=== PATIENT | female | born 1985 | race Two or more races ===

== ENCOUNTER 2024-01-29 14:34 | Outpatient (RCR) | payer MEDICAID, SELFPAY | END 2024-02-21 23:59 | disposition home or self-care (01) | LOC: SCTC 14:34 | PROVIDERS: PCP Family Medicine; Referring Provider Family Medicine; Visit Provider Nurse Practitioner Family | DX: D69.6 Thrombocytopenia, unspecified (principal); R16.1 Splenomegaly, not elsewhere classified; D70.9 Neutropenia, unspecified; Z87.891 Personal history of nicotine dependence; N92.0 Excessive and frequent menstruation with regular cycle; N83.202 Unspecified ovarian cyst, left side | CPT/HCPCS: 99212; G0463 ==

== ENCOUNTER 2024-06-10 13:27 | Outpatient (RCR) | payer MEDICAID, SELFPAY ==
--- NOTE | 2024-06-02 01:04 | CTCFLWUP_ITS ---
Patient: DAVID VICTORIA : 1985 Page 2 of 2 HEMATOLOGY FOLLOW UP NOTE DATE OF SERVICE: 06/01/2024 NAME: DAVID VICTORIA ACCOUNT: [id number] : 1985 AGE: 38 INTERVAL HISTORY: Patient is complaining of small bruise on her thigh. DIAGNOSIS: Thrombocytopenia likely secondary to hepatosplenomegaly possibly due to history of fatty liver, 08/07/2023. Significant splenomegaly, 10/01/2023 TREATMENT HISTORY: Care?Plan Start?Date Cycle Day Intent HISTORY OF PRESENT ILLNESS: Patient is 38-year-old woman with hepatosplenomegaly and thrombocytopenia. Patient was briefly started on Promacta and which she was unable to tolerate. Patient says that she had severe headache nausea and vision changes and do not want to continue Promacta. Patient was on 25 mg. Patient was sent here after she was found to have low platelets for planned ovarian cyst removal. Patient has now established her care in the clinic in [place]. Patient do not use alcohol. Patient have not seen family practice medical doctor. OTHER MEDICAL HISTORY/CONDITIONS: Thrombocytopenia Left ovarian cyst Covid 2020 Appendectomy - 2016 Tubal ligation - 3 yrs ago FAMILY HISTORY: Sibling:?Sister?-?breast?-?dx?age?39 Cancer History:?Maternal aunt - breast - dx age 60 SOCIAL HISTORY: Occupational History - Unemployed Education Level - Completed High School Marital Status - Tobacco Use Note - Smoking 3 cigarettes/day x 2-3 yrs off/on ETOH Use Note - Denies Drug Note - Denies Abuse/Neglect Note - Denies Social History Note 2 - Lives [facility] children [employer] HISTORY: Menarche?-?Age:?11 Date?LMP:?07/08/2023 :?3 Live?Births:?3 Age?1st?:?17 Gynecological?Note:?Menses regular -6 days/mo; 4 days heavy bleeding with clots MEDICATIONS: 1. prednisone - 10 mg 1 tab Daily 2. Protonix - 40 mg 1 tab Daily Medications Last Reconciled by Sully Andrade MD on 06/01/2024 5 5 ALLERGIES: No Known Drug Allergies REVIEW OF SYSTEMS: A complete 14-point review of systems was performed and is negative except as noted in interval history. PHYSICAL EXAMINATION: VITAL SIGNS: Temperature?95.4, B/P?120/80, Oxygen?Saturation?97% Weight?166?lbs PAIN: 1 - Between no and mild pain ECOG Performance Status: 0 - Asymptomatic and fully active GENERAL APPEARANCE: Appears well, in no apparent distress, appropriately interactive. HEENT: Normocephalic, no temporal wasting, normal conjunctiva, no scleral icterus, normal hearing, lips without lesions, neck normal range of motion. CARDIOVASCULAR: Not assessed. PULMONARY: Normal respiratory effort, no respiratory distress or use of accessory muscles, speaking in full sentences, no tachypnea. EXTREMITIES: No pedal edema or cyanosis. SKIN: Normal skin appearance. Bruise noted over the right thigh small area. No other punctate lesions noted anywhere on the shins or arms NEUROLOGIC: Alert and oriented x4. PSHYCHIATRIC: Appropriate affect, mood normal, behavior normal, intact thought and speech. 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 pylori testing to see if patient have any viral infections which can cause chronic thrombocytopenia Will do MRI of the liver and spleen to confirm hepatosplenomegaly Will do flow cytometry for myeloproliferative neoplasms I will start Ms. Victoria on steroid prednisone taper and see if patient responds to prednisone I reviewed patient's old labs and patient never had hyperbilirubinemia. Will check for LDH haptoglobin antiplatelet antibodies As patient also had leukopenia at most labs I am concerned for MPN and will order bone marrow biopsy Once we have results of all investigations, we will make further recommendations Patient can be given platelet pheresis if needed for procedure ORDERS: Order # Description [id number] MRI + Abdomen + With W/O Contrast [id number] CBC with Auto Diff [id number] Hep A, B and C panel [id number] CT Guided Bone Marrow Biopsy and Aspiration [id number] Myeloproliferative Neoplasms Extended Reflex Panel RETURN TO CLINIC: 1 week BILLING AND COMPLIANCE: I reviewed external records from providers outside my specialty as summarized above. I spent a total of 50 minutes on this patient?s care on the day of their visit excluding time spent related to any billed procedures. This time includes time spent with the patient as well as time spent documenting in the medical record, reviewing patients records and tests, obtaining history, placing orders, communicating with other healthcare professionals, counseling the patient, family or caregiver, and/or care coordination for the diagnoses above. Electronically Signed by: Gomez Jacob MD T: 1:02 AM CC: PCP: Referring: Philippe Abebe This document was completed utilizing speech recognition software. Grammatical errors, random word insertions, pronoun errors, and incomplete sentences are an occasional consequence of this system due to software limitations, ambient noise, and hardware issues. Any formal questions or concerns about the content, text or information contained within the body of this dictation should be directly addressed to the provider for clarification.
--- NOTE | 2024-07-11 18:49 | CTCFLWUP_ITS ---
Patient: DAVID VICTORIA : 1985 MR#: [id number] Page 2 of 2 TELEHEALTH FOLLOW UP NOTE DATE OF CONSULTATION: 06/10/2024 NAME: DAVID VICTORIA ACCOUNT: [id number] : 1985 AGE: 38 REFERRING PHYSICIAN: Philippe Abebe MD PRIMARY PHYSICIAN: INTERVAL HISTORY: Patient is here to follow-up biopsy results DIAGNOSIS: Thrombocytopenia from underlying liver diseasehepatosplenomegaly and thrombocytopenia. Patient was briefly started on Promacta and which she was unable to tolerate. Patient says that she had severe headache nausea and vision changes and do not want to continue Promacta. Patient was on 25 mg. Patient was sent here after she was found to have low platelets for planned ovarian cyst removal. Patient has now established her care in the clinic in [place]. Patient do not use alcohol. 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 HISTORY OF PRESENT ILLNESS: 38-year-old female OTHER MEDICAL HISTORY/CONDITIONS: Thrombocytopenia Left ovarian cyst Covid 2020 Appendectomy - 2016 Tubal ligation - 3 yrs ago FAMILY HISTORY: Sibling:?Sister?-?breast?-?dx?age?39 Cancer History:?Maternal aunt - breast - dx age 60 SOCIAL HISTORY: Occupational?History:?Unemployed Education?Level:?Completed High School Marital?Status:? 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 None?[place] Meds? Medications Last Reconciled by Sully Hernandez MA on 06/10/2024 ALLERGIES: No Known Drug Allergies REVIEW OF SYSTEMS: A complete 14-point review of systems was performed and is negative except as noted in interval history. PHYSICAL EXAMINATION: The patient appeared well-nourished, alert, and in no apparent distress via video conferencing. LABORATORY DATA: I have personally reviewed and interpreted each of Ms. 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 Patient's WBC count is 4 hemoglobin 14.5 and platelets 66 Patient noted to have WBC ranging from 2-3 in the previous labs Will refer to [facility] and do bone marrow biopsy to evaluate for any underlying MDS or leukemia [facility] to follow-up on possible liver transplant or other options Patient has massive hepatosplenomegaly No bleeding or bruising W advised to collect complete imaging with MRI of the liver Will also get CT scan to evaluate for any lymphadenopathy I will start Promacta if patient's platelets go below 50 ORDERS: Order # Description [id number] MRI + Abdomen + With W/O Contrast [id number] CBC with Auto Diff [id number] Hep A, B and C panel [id number] CT Guided Bone Marrow Biopsy and Aspiration [id number] Myeloproliferative Neoplasms Extended Reflex Panel [id number] Initial PET/CT of Skull to Mid-Thigh RETURN TO CLINIC: 4 to 6 weeks after follow-up with [facility] BILLING AND COMPLIANCE: I reviewed external records from providers outside my specialty as summarized above. I spent a total of 50 minutes on this patient?s care on the day of their visit excluding time spent related to any billed procedures. This time includes time spent with the patient as well as time spent documenting in the medical record, reviewing patients records and tests, obtaining history, placing orders, communicating with other healthcare professionals, counseling the patient, family or caregiver, and/or care coordination for the diagnoses above. I performed this evaluation using real-time Telehealth tools. Prior to initiating, the patient consented to perform this evaluation using Telehealth tools. Electronically Signed by: Gomez Jacob MD T: 6:47 PM CC: PCP: Referring: Philippe Abebe This document was completed utilizing speech recognition software. Grammatical errors, random word insertions, pronoun errors, and incomplete sentences are an occasional consequence of this system due to software limitations, ambient noise, and hardware issues. Any formal questions or concerns about the content, text or information contained within the body of this dictation should be directly addressed to the provider for clarification.
== END 2024-06-21 23:59 | disposition home or self-care (01) ==
LOC: SCTC 13:27
PROVIDERS: PCP Family Medicine; Referring Provider Family Medicine; Visit Provider Internal Medicine Hematology & Oncology
DX: D69.6 Thrombocytopenia, unspecified (principal); D72.819 Decreased white blood cell count, unspecified; S70.11XA Contusion of right thigh, initial encounter; X58.XXXA Exposure to other specified factors, initial encounter; R16.2 Hepatomegaly with splenomegaly, not elsewhere classified
CPT/HCPCS: 99212; G0463

== ENCOUNTER 2024-06-22 07:38 | Outpatient (CLI) | payer MEDICAID, SELFPAY ==
[2024-06-21 11:27] LABS: Basophils % (Auto) 0 % (0-2.5); Eosinophils % (Auto) 0 % (0-10); Hematocrit 41.2 % (36.0-46.0); Hemoglobin 14.9 g/dL (12.0-16.0); Immature Granulocytes % (Auto) 0 % (0-0); Immature Granulocytes Auto 0.02 Thou/mm3 (0.00-0.00); Lymphocytes # (Auto) 1.1 Thou/mm3 (1.0-4.8); Lymphocytes % (Auto) 23 % (10-50); Mean Corpuscular HGB Conc 36.2 g/dl (31.0-37.0); Mean Corpuscular Volume 89 fL (80-100); Monocytes # (Auto) 0.4 Thou/mm3 (0.0-0.8); Monocytes % (Auto) 8 % (0-12); Neutrophils # (Auto) 3.2 Thou/mm3 (1.8-7.7); Neutrophils % (Auto) 69 % (37-80); Nucleated Red Blood Cell % 0 /100 WBC (0); RDW Standard Deviation 39.6 fL (36.4-46.3); Red Blood Count 4.65 Miln/mm3 (4.00-5.20); White Blood Count 4.7 Thou/mm3 (3.6-11.0)
[2024-06-21 11:43] LABS: Platelet Count 76 Thou/mm3 (140-440)
[2024-06-21 11:52] LABS: INR 1.1 (0.9-1.3); Partial Thromboplastin Time 27.7 Seconds (22.0-36.0); Prothrombin Time 11.6 Seconds (9.0-12.2)
[2024-06-21 11:53] LABS: HCG,Qualitative Serum Negative
[2024-06-21 12:29] LABS: Slide Review Platelets confirmed
[2024-06-22] VITALS (9 sets, daily range): BP systolic 119–155; BP diastolic 79–93; PULSE 64–85; RESP 14–20; TEMP 36.7–37.4; O2SAT 96–100; BMI 27.6
--- NOTE | 2024-06-22 08:30 | XR_ITS ---
Examination: CT-guided percutaneous bone marrow aspiration right posterior perianal iliac crest CT-guided percutaneous bone biopsy deep right posterior superior iliac crest Date and time of procedure: June 22, 2024 0916 hours INDICATIONS: Diagnosis thrombocytopenia Informed consent provided. A timeout was completed verifying correct patient, procedure, site and positioning. Technique: Axial 3 mm sections were obtained for localization of the right posterior superior iliac crest Appropriate area is marked. The patient's site was prepped and draped in sterile fashion Maximal sterile barrier technique utilized, including hand hygiene Local anesthesia was obtained with 1% lidocaine. Low dose protocols were performed. One or more of the following dose reduction techniques were used; automated exposure control, adjustment of the mA and/or KV according to patient size, use of iterative reconstruction technique. Utilizing CT fluoroscopic guidance 14-gauge bone biopsy needle placed in the right posterior superior iliac crest 5 cc marrow aspirate obtained deemed satisfactory by the technologist 5 cm bone core obtained Patient appears in stable condition during this procedure. At completion of the procedure, the patient is in satisfactory condition. Estimated blood loss 2 cc Complete pathology report to follow. Impression: Successful CT-guided percutaneous bone marrow aspiration right posterior superior iliac crest Successful CT-guided percutaneous bone biopsy deep right posterior superior iliac crest
[2024-06-22] MEDS: SODIUM CHLORIDE 0.9% 500 ML 500 ML 20 ML IV (09:40)
[2024-06-22] MEDS: fentaNYL CIT INJ 50 mCg/ML AMP 2ML 75 MCG IV (09:42)
[2024-06-22] MEDS: LIDOCAINE INJ PF 1% 30 ML VIAL 9 ML INFL (09:48)
[2024-06-22 10:11] LABS: Flow Cytometry* See Sep Rpt
== END 2024-06-22 11:00 | disposition home or self-care (01) ==
PROVIDERS: Radiology Diagnostic Radiology; PCP Family Medicine; Referring Provider Internal Medicine Hematology & Oncology; Visit Provider Internal Medicine Hematology & Oncology
DX: D69.6 Thrombocytopenia, unspecified (principal); Z01.812 Encounter for preprocedural laboratory examination
CPT/HCPCS: 38221; 36415; 77012; 84703; 85025; 85610; 85730; J3010; J3490; J7040

== ENCOUNTER → 2024-07-01 | Outpatient (CLI) | payer MEDICAID, SELFPAY ==
--- NOTE | 2024-07-01 09:15 | XR_ITS ---
Examination: MRI abdomen with intravenous contrast. MRI abdomen without intravenous contrast. Date and time of exam: July 01, [address] abdomen pelvis October 01, 2023 Indications: Thrombocytopenia diagnosis, primary hepatocellular disease, significant splenomegaly on CT abdomen pelvis October 01, 2023 Technique: Multiple axial, sagittal and coronal sections of the abdomen obtained. Transverse images, TR 6020, TE 107. T1 weighted transverse images, TR 582, TE 9.5. T2-weighted sagittal images, TR 4000, TE 105. T2-weighted sagittal images, TR 4000, TE 5. Coronal images, TR 4210, TE 107. Axial and coronal images are obtained post 20 cc gadolinium intravenous Findings: The liver is irregular in contour No focal liver lesions Marked splenomegaly cephalocaudad dimension at least 18 cm No gallstones Gallbladder wall is not thickened Normal common hepatic common bile duct No pancreatic mass or peripancreatic edema Normal adrenal glands No ascites No hydronephrosis Aorta normal size No abdominal lymphadenopathy Homogeneous marrow signal Impression: Primary hepatocellular disease Significant splenomegaly Normal gallbladder, normal common hepatic common bile duct No pancreatic mass or peripancreatic edema No abdominal lymphadenopathy No ascites
== END | disposition home or self-care (01) ==
LOC: SMRI 09:04
PROVIDERS: PCP Family Medicine; Referring Provider Internal Medicine Hematology & Oncology; Visit Provider Internal Medicine Hematology & Oncology
DX: D69.6 Thrombocytopenia, unspecified (principal); K76.9 Liver disease, unspecified; R16.1 Splenomegaly, not elsewhere classified
CPT/HCPCS: 74183; A9579

== ENCOUNTER 2024-07-20 08:48 | Outpatient (RCR) | payer MEDICAID, SELFPAY | END 2024-07-21 23:59 | disposition home or self-care (01) | LOC: SCTC 08:48 | PROVIDERS: PCP Family Medicine; Referring Provider Nurse Practitioner Family; Visit Provider Nurse Practitioner Family | DX: D69.6 Thrombocytopenia, unspecified (principal); R16.2 Hepatomegaly with splenomegaly, not elsewhere classified; R59.0 Localized enlarged lymph nodes; F17.210 Nicotine dependence, cigarettes, uncomplicated | CPT/HCPCS: 99212; 99424; 99425; G0463 ==

== ENCOUNTER → 2024-08-19 | Outpatient (CLI) | payer MEDICAID, SELFPAY ==
--- NOTE | 2024-08-19 08:00 | XR_ITS ---
EXAMINATION: PET/CT FUSION SKULL TO THIGH EXAM DATE AND TIME: August 19, 2024 0854 hours Comparison MRI abdomen July 01, 2024, CT abdomen pelvis October 01, 2023 INDICATIONS: Initial staging thrombocytopenia CTDI: 6.40 mgy DLP: 584.55 mgy PROCEDURE: 15.32 mCi FDG was administered intravenously To allow for distribution and uptake of radiotracer, the patient was allowed to rest quietly in a shielded room. Imaging was performed on an integrated 16-slice PET/CT scanner, with scanning from the skull base to the mid thigh. Serum blood glucose at the time of the injection was measured 94 mg/dL. CT scanning was performed without oral or intravenous contrast material. FINDINGS: Head and Neck: There is no dawn hypermetabolism in the neck. The visualized portions of the brain are normal in appearance on CT. Chest: There is no dawn hypermetabolism in the chest. There are no pulmonary nodules. Abdomen and Pelvis: There is no dawn hypermetabolism in retroperitoneal or pelvic chains. The spleen is normal in size and FDG avidity. Musculoskeletal: Marrow uptake is within normal range. IMPRESSION: No abnormal hypermetabolic activity
== END | disposition home or self-care (01) ==
PROVIDERS: PCP Family Medicine; Referring Provider Internal Medicine Hematology & Oncology; Visit Provider Internal Medicine Hematology & Oncology
DX: D69.6 Thrombocytopenia, unspecified (principal)
CPT/HCPCS: 78815; A9552

== ENCOUNTER 2024-08-30 13:50 | Outpatient (RCR) | payer MEDICAID, SELFPAY | END 2024-09-20 23:59 | disposition home or self-care (01) | LOC: SCTC 13:50 | PROVIDERS: PCP Family Medicine; Referring Provider Family Medicine; Visit Provider Nurse Practitioner Family | DX: D69.6 Thrombocytopenia, unspecified (principal); R16.2 Hepatomegaly with splenomegaly, not elsewhere classified; N83.209 Unspecified ovarian cyst, unspecified side; F17.210 Nicotine dependence, cigarettes, uncomplicated; Z71.6 Tobacco abuse counseling | CPT/HCPCS: 99213; G0463 ==